=== PATIENT | female | born 1955 | race Two or more races ===

== ENCOUNTER 2023-08-12 11:13 | Emergency (ER) | payer OTHER ==
[~2023-08-12] VITALS: Ht 160 cm; Wt 82.6 kg
[~2023-08-12 11:13] MED LIST: BISOPROLOL-HCTZ1 TA1 PO; MEDROLPACK PO; ZYRTEC10 M3 PO
[2023-08-12] MEDS ORDERED: NORVASC2.5 MG PO (12:23)
[2023-08-12] MEDS ORDERED: ZOFRAN8 MG PO (17:13)
[2023-08-12] MEDS ORDERED: PEPCID AC20 MG PO (17:13)
== END 2023-08-12 17:27 | disposition home or self-care (01) ==
LOC: ER 11:13
PROVIDERS: General Practice
DX: K52.89 Other specified noninfective gastroenteritis and colitis (principal)
CPT/HCPCS: 36415; 96365; 99282; J7030

== ENCOUNTER 2023-09-28 08:22 | Emergency (ER) | payer OTHER ==
[~2023-09-28] VITALS: Ht 160 cm; Wt 81.2 kg
[~2023-09-28 08:22] MED LIST changes: +NORVASC2.5 MG PO; +PEPCID AC20 MG PO; +ZOFRAN8 MG PO
== END 2023-09-28 10:49 | disposition home or self-care (01) ==
LOC: ER 08:22
DX: U07.1 COVID-19 (principal)

== ENCOUNTER → 2024-08-27 07:03 | Outpatient (CLI) | payer OTHER | END | disposition home or self-care (01) | LOC: NUCLEAR 07:00 | PROVIDERS: ATTEND Internal Medicine Gastroenterology | DX: K82.9 Disease of gallbladder, unspecified (principal) | CPT/HCPCS: 78227; A9537 ==

== ENCOUNTER 2025-01-22 10:50 | Emergency (ER) | payer OTHER ==
[~2025-01-22] VITALS: Ht 160 cm; Wt 85.3 kg
[2025-01-22] MEDS ORDERED: ADULT LOW DOSE81 M1 PO (10:53)
[2025-01-22] MEDS ORDERED: KETOROLAC TROMETHAMINE 60 MG VIAL IM STA (12:15)
[2025-01-22] MEDS ORDERED: ORPHENADRINE CITRATE 30 MG/ML AMPUL IM STA (12:15)
[2025-01-22] MEDS ORDERED: ORPHENADRINE CITRATE 30 MG/ML AMPUL ONE (12:23)
[2025-01-22] MEDS ORDERED: KETOROLAC TROMETHAMINE 60 MG VIAL IM ONE (12:24)
== END 2025-01-22 13:30 | disposition home or self-care (01) ==
LOC: ER 10:52
DX: M54.2 Cervicalgia (principal); I10 Essential (primary) hypertension
CPT/HCPCS: 72040; 96372; 99283; J1885; J2360